=== PATIENT | male | born 1970 | race Caucasian/White ===

== ENCOUNTER 2016-05-21 01:30 | Emergency (ER) | payer OTHER ==
--- NOTE | 2016-05-21 02:01 | ED CLINICAL REPORT ---
Clinical Report - Physicians/Mid Levels [facility] [address] [place] [address] 05/21/2016 1:32 Patient: JASMYN VANESSA Time Seen: 01:38. Arrived- By private vehicle. Historian- patient. HISTORY OF PRESENT ILLNESS Chief Complaint: EYE REDNESS and IRRITATION. This started today, involves the right and left eye, is characterized as moderate in severity and has been constant and is still present. The patient did not sustain an injury. Eye discomfort. Moderate right and left eye redness. Moderate right and left eye irritation. A moderate amount of discharge from the right eye and left eye. Mild right and left eye matting. No eyelid swelling, photophobia, double vision, decreased vision or loss of vision. REVIEW OF SYSTEMS No fever or sore throat. He has had nasal congestion, a runny nose and a mild cough. All systems otherwise negative, except as recorded above. PAST HISTORY See nurses notes. No history of diabetes mellitus or glaucoma. Dental pain. Chronic back pain. Surgeries: Knee surgery. Tonsillectomy. Vasectomy. Medications: None. Allergies: Penicillins. SOCIAL HISTORY Smoker- current status unknown. History of drug use: marijuana. No alcohol use. ADDITIONAL NOTES The nursing notes have been reviewed. PHYSICAL EXAM Vital Signs: 05/21/2016 01:41 BP: 141/74. HR: 110. RR: 17. O2 saturation: 97%. Temp: 98 F. Pain level now: 0/10. Appearance: Alert. Oriented X3. Patient in mild distress. HEENT: Pharynx normal. Rt Eye: Injected conjunctiva. Exudate present. No injury to the conjunctiva or sclera or corneal foreign body or abrasion. Eyes: Visual acuity noted- see nurse's notes. Eyelids appear normal to inspection. Corneas appear normal to inspection. Pupils equal, round and reactive to light. Accommodation normal. EOMs intact. Periorbital areas appear normal to inspection. Lt Eye: Injected conjunctiva. Exudate present. No injury to the conjunctiva or sclera or corneal foreign body or abrasion. Neck: Neck supple. Normal inspection. CVS: Normal heart rate and rhythm. Respiratory: No respiratory distress. Breath sounds normal. Skin: No rash. Neuro: Oriented X 3. Mood/affect normal. No motor deficit. PROGRESS AND PROCEDURES Course of Care: Ibuprofen 600 mg PO given. Zofran 4 mg ODT PO given. Proparacaine 2 drops to each eye given. Patient is stable. Physical exam findings are improved. Symptoms much better. Patient/family counseled. Old ED records reviewed. Patient has had multiple ED visits. Disposition: Discharged. Condition: stable and improved. CLINICAL IMPRESSION Acute serous conjunctivitis of the right eye and left eye. Chronic substance abuse- tobacco (cigarettes), marijuana. No intoxication, anxiety or drug induced psychotic disorder or mood disorder. Acute viral rhinitis. INSTRUCTIONS Do not work for two days. Drink plenty of fluids. Do not smoke. Seek medical help to quit smoking. Warnings: Further evaluation is necessary. It is very important to follow up with a physician. GENERAL WARNINGS: Return or contact your physician immediately if your condition worsens or changes unexpectedly, if not improving as expected, or if other problems arise. Prescription Medications: Sulfacetamide ophthalmic solution 10% : Instill 2 drops into affected eye every 2 hours while awake for 1 week. Dispense fifteen (15) mL. No refills. OTC Medications: Motrin (available over the counter): take according to label instructions. Follow-up: Follow up with your doctor in about two days. Follow-up with: Leo Rojas MD, Ophthalmology, , [facility] [place] [address]; Zunilda Rosario MD, Ophthalmology, [facility] [address] - [address] [place] [address] Follow up in about two days if not better. (Electronically signed by Curt Early DO 05/21/2016 4:31)
--- NOTE | 2016-05-21 02:01 | ED NURSING NOTES ---
Clinical Report - Nurses [facility] [place] [address] [place] [address] 05/21/2016 1:32 Patient: JASMYN VANESSA TRIAGE Triage time 01:42. Acuity: LEVEL 4. Chief Complaint: REDNESS TO RIGHT EYE. REDNESS TO LEFT EYE. DRAINAGE TO RIGHT EYE. DRAINAGE TO LEFT EYE. 01:46. Alert. SEPSIS SCREEN: Sepsis Screen. Negative (no infection suspected/documented). VISUAL ACUITY: Visual acuity performed without corrective lenses: left eye; right eye 20/25; both eyes 20/20 minus one letter. --01:46 Jair Meier R.N. 01:41 05/21/16. BP: 141/74. HR: 110. RR: 17. O2 saturation: 97% on room air. Temp: 98 F. Pain level now: 0/10. --01:46 Jair Meier R.N. VISUAL ACUITY: Visual acuity performed: left eye 20/30 minus one letter. --02:13 Jair Meier R.N. Weight: 92.9 kg stated. Height/Length: 72 inches Per Patient. BMI: 27.8. --01:45 Jair Meier R.N. Medications None. --01:43 Jair Meier R.N. Medication/allergy information source: the patient. --01:46 Jair Meier R.N. Allergies Penicillins. --01:43 Jair Meier R.N. History Arrived by private vehicle. Historian: patient. Accompanied by friend. [facility] [place] This started today. Onset. (Cough and cold symptoms for 4-5 days). He did not sustain an injury. ( Cough). 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 PAST MEDICAL HX: Immunizations: up-to-date. SOCIAL HX: Current every day light tobacco smoker- less than 1/2 a pack per day. History of weekly drug use: marijuana. No alcohol use. No infectious disease exposure. ABUSE ASSESSMENT: No report of abuse. FALL RISK ASSESSMENT: Fall risk assessment completed. No fall risk identified. NUTRITIONAL RISK ASSESSMENT: The nutritional risk assessment revealed no deficiencies. FUNCTIONAL ASSESSMENT: Functional assessment: no impairments noted. LEARNING NEEDS ASSESSMENT: The learning needs assessment revealed no barriers. SKIN INTEGRITY ASSESSMENT: Skin integrity risk assessment completed. No skin integrity risk identified. --01:46 Jair Meier R.N. PROBLEMS: Back Injury. Sciatica. Arthritis. Viral Disease. --01:44 Jair Meier R.N. ADDITIONAL SURGERIES: Knee Surgery. Tonsillectomy. Vasectomy. --01:44 Jair Meier R.N. Interventions ID band on patient. To treatment room. --01:46 Jair Meier R.N. PHYSICAL ASSESSMENT 01:46. Ambulatory to room. GENERAL / NEURO / PSYCH: Alert. HEENT: No facial asymmetry noted. Conjunctival findings present: redness of the right conjunctiva and redness of the left conjunctiva. SKIN: Skin is warm and dry. Normal skin turgor. --01:46 Jair Meier R.N. NURSING PROGRESS NOTES Head of bed elevated. Two patient identifiers checked. Call light placed in reach. Bed placed in lowest position. Brakes of bed on. Patient ready for evaluation- chart flagged. --01:47 Jair Meier R.N. 02:00 05/21/2016 Ibuprofen PO 600 mg given. Allergies verified and confirmed 5 rights. --02:03 Jair Meier R.N. 02:01 05/21/2016 Zofran ODT (Ondansetron) PO 4 mg given. Allergies verified and confirmed 5 rights. --02:04 Jair Meier R.N. 02:03 05/21/2016 Proparacaine Eye Drops 2 drop given. Given in both eyes. Allergies verified and confirmed 5 rights. --02:04 Jair Meier R.N. 02:07. The patient is calm and resting quietly. GENERAL / NEURO / PSYCH: Alert. Oriented X 4. RESPIRATORY: No respiratory distress. SKIN: Skin color within normal limits. Skin is warm and dry. --02:11 Jair Meier R.N. DISPOSITION / DISCHARGE Departure time: 02:10. Condition at departure: stable. No learning barriers present. Discharge instructions provided and reviewed with the patient. Reviewed medication(s) side effects, precautions, dosing and course information. Prescription(s) given to the patient. Patient verbalized understanding. Written instructions provided in Rwandan. The patient was discharged home and accompanied by cutting and boning supervisor. He left the Emergency Department ambulatory and via private vehicle. Quality Auditor driving. FALL RISK ASSESSMENT: Fall risk assessment completed. No fall risk identified. --02:11 Jair Meier R.N. 02:05 05/21/16. HR: 98. RR: 15. O2 saturation: 98%. Pain level now: 0/10. --02:11 Jair Meier R.N. Locked/Released at 05/21/2016 2:13 by Jair Meier R.N.
--- NOTE | 2016-05-21 02:01 | ED ORDER SUMMARY ---
..... Patient: JASMYN VANESSA OrderSheet [facility] VisitID: [id number] [place] [address] 45y, M Registration Date/Time: 05/21/2016 ORDER SHEET Weight: 92.9 kg (stated) Allergies: Penicillins GENERAL ORDERS: MEDICATION ORDERS: Proparacaine Eye Drops (Solution 0.5 %) 2 drops (NOW, both eyes) (01:57 05/21/2016 Tan TURNER) (Ack 1:58 JQuivey R.N.) (2:04 JQuivey R.N.) Ibuprofen PO 600 mg (NOW) (01:57 05/21/2016 Tan TURNER) (Ack 1:58 JQuivey R.N.) (2:03 JQuivey R.N.) Zofran ODT PO 4 mg (NOW) (01:57 05/21/2016 Tan TURNER) (Ack 1:58 JQuivey R.N.) (2:04 JQuivey R.N.) IV FLUIDS: ORDER SHEET NOTES: [Electronically signed by Jair Meier R.N. (02:13 05/21/2016)] [Electronically signed by Curt Early DO (04:31 05/21/2016)] [Electronically locked/signed by Jair Meier R.N. (02:13 05/21/2016)]
--- NOTE | 2016-05-21 02:01 | ED ORDER SUMMARY ---
..... Patient: JASMYN VANESSA OrderSheet [facility] VisitID: [id number] [place] [address] 45y, M Registration Date/Time: 05/21/2016 ORDER SHEET Weight: 92.9 kg (stated) Allergies: Penicillins GENERAL ORDERS: MEDICATION ORDERS: Proparacaine Eye Drops (Solution 0.5 %) 2 drops (NOW, both eyes) (01:57 05/21/2016 Tan TURNER) (Ack 1:58 JQuivey R.N.) (2:04 JQuivey R.N.) Ibuprofen PO 600 mg (NOW) (01:57 05/21/2016 Tan TURNER) (Ack 1:58 JQuivey R.N.) (2:03 JQuivey R.N.) Zofran ODT PO 4 mg (NOW) (01:57 05/21/2016 Tan TURNER) (Ack 1:58 JQuivey R.N.) (2:04 JQuivey R.N.) IV FLUIDS: ORDER SHEET NOTES: [Electronically signed by Jair Meier R.N. (02:13 05/21/2016)] [Electronically signed by Curt Early DO (04:31 05/21/2016)] [Electronically locked/signed by Jair Meier R.N. (02:13 05/21/2016)]
--- NOTE | 2016-05-21 02:01 | ED CLINICAL REPORT ---
Clinical Report - Physicians/Mid Levels [facility] [address] [place] [address] 05/21/2016 1:32 Patient: JASMYN VANESSA Time Seen: 01:38. Arrived- By private vehicle. Historian- patient. HISTORY OF PRESENT ILLNESS Chief Complaint: EYE REDNESS and IRRITATION. This started today, involves the right and left eye, is characterized as moderate in severity and has been constant and is still present. The patient did not sustain an injury. Eye discomfort. Moderate right and left eye redness. Moderate right and left eye irritation. A moderate amount of discharge from the right eye and left eye. Mild right and left eye matting. No eyelid swelling, photophobia, double vision, decreased vision or loss of vision. REVIEW OF SYSTEMS No fever or sore throat. He has had nasal congestion, a runny nose and a mild cough. All systems otherwise negative, except as recorded above. PAST HISTORY See nurses notes. No history of diabetes mellitus or glaucoma. Dental pain. Chronic back pain. Surgeries: Knee surgery. Tonsillectomy. Vasectomy. Medications: None. Allergies: Penicillins. SOCIAL HISTORY Smoker- current status unknown. History of drug use: marijuana. No alcohol use. ADDITIONAL NOTES The nursing notes have been reviewed. PHYSICAL EXAM Vital Signs: 05/21/2016 01:41 BP: 141/74. HR: 110. RR: 17. O2 saturation: 97%. Temp: 98 F. Pain level now: 0/10. Appearance: Alert. Oriented X3. Patient in mild distress. HEENT: Pharynx normal. Rt Eye: Injected conjunctiva. Exudate present. No injury to the conjunctiva or sclera or corneal foreign body or abrasion. Eyes: Visual acuity noted- see nurse's notes. Eyelids appear normal to inspection. Corneas appear normal to inspection. Pupils equal, round and reactive to light. Accommodation normal. EOMs intact. Periorbital areas appear normal to inspection. Lt Eye: Injected conjunctiva. Exudate present. No injury to the conjunctiva or sclera or corneal foreign body or abrasion. Neck: Neck supple. Normal inspection. CVS: Normal heart rate and rhythm. Respiratory: No respiratory distress. Breath sounds normal. Skin: No rash. Neuro: Oriented X 3. Mood/affect normal. No motor deficit. PROGRESS AND PROCEDURES Course of Care: Ibuprofen 600 mg PO given. Zofran 4 mg ODT PO given. Proparacaine 2 drops to each eye given. Patient is stable. Physical exam findings are improved. Symptoms much better. Patient/family counseled. Old ED records reviewed. Patient has had multiple ED visits. Disposition: Discharged. Condition: stable and improved. CLINICAL IMPRESSION Acute serous conjunctivitis of the right eye and left eye. Chronic substance abuse- tobacco (cigarettes), marijuana. No intoxication, anxiety or drug induced psychotic disorder or mood disorder. Acute viral rhinitis. INSTRUCTIONS Do not work for two days. Drink plenty of fluids. Do not smoke. Seek medical help to quit smoking. Warnings: Further evaluation is necessary. It is very important to follow up with a physician. GENERAL WARNINGS: Return or contact your physician immediately if your condition worsens or changes unexpectedly, if not improving as expected, or if other problems arise. Prescription Medications: Sulfacetamide ophthalmic solution 10% : Instill 2 drops into affected eye every 2 hours while awake for 1 week. Dispense fifteen (15) mL. No refills. OTC Medications: Motrin (available over the counter): take according to label instructions. Follow-up: Follow up with your doctor in about two days. Follow-up with: Leo Rojas MD, Ophthalmology, , [facility] [place] [address]; Zunilda Rosario MD, Ophthalmology, [facility] [address] - [address] [place] [address] Follow up in about two days if not better. (Electronically signed by Curt Early DO 05/21/2016 4:31)
--- NOTE | 2016-05-21 02:01 | ED NURSING NOTES ---
Clinical Report - Nurses [facility] [place] [address] 05/21/2016 1:32 Patient: JASMYN VANESSA TRIAGE Triage time 01:42. Acuity: LEVEL 4. Chief Complaint: REDNESS TO RIGHT EYE. REDNESS TO LEFT EYE. DRAINAGE TO RIGHT EYE. DRAINAGE TO LEFT EYE. 01:46. Alert. SEPSIS SCREEN: Sepsis Screen. Negative (no infection suspected/documented). VISUAL ACUITY: Visual acuity performed without corrective lenses: left eye; right eye 20/25; both eyes 20/20 minus one letter. --01:46 Jair Meier R.N. 01:41 05/21/16. BP: 141/74. HR: 110. RR: 17. O2 saturation: 97% on room air. Temp: 98 F. Pain level now: 0/10. --01:46 Jair Meier R.N. VISUAL ACUITY: Visual acuity performed: left eye 20/30 minus one letter. --02:13 Jair Meier R.N. Weight: 92.9 kg stated. Height/Length: 72 inches Per Patient. BMI: 27.8. --01:45 Jair Meier R.N. Medications None. --01:43 Jair Meier R.N. Medication/allergy information source: the patient. --01:46 Jair Meier R.N. Allergies Penicillins. --01:43 Jair Meier R.N. History Arrived by private vehicle. Historian: patient. Accompanied by friend. [facility] [place] This started today. Onset. (Cough and cold symptoms for 4-5 days). He did not sustain an injury. ( Cough). 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 PAST MEDICAL HX: Immunizations: up-to-date. SOCIAL HX: Current every day light tobacco smoker- less than 1/2 a pack per day. History of weekly drug use: marijuana. No alcohol use. No infectious disease exposure. ABUSE ASSESSMENT: No report of abuse. FALL RISK ASSESSMENT: Fall risk assessment completed. No fall risk identified. NUTRITIONAL RISK ASSESSMENT: The nutritional risk assessment revealed no deficiencies. FUNCTIONAL ASSESSMENT: Functional assessment: no impairments noted. LEARNING NEEDS ASSESSMENT: The learning needs assessment revealed no barriers. SKIN INTEGRITY ASSESSMENT: Skin integrity risk assessment completed. No skin integrity risk identified. --01:46 Jair Meier R.N. PROBLEMS: Back Injury. Sciatica. Arthritis. Viral Disease. --01:44 Jair Meier R.N. ADDITIONAL SURGERIES: Knee Surgery. Tonsillectomy. Vasectomy. --01:44 Jair Meier R.N. Interventions ID band on patient. To treatment room. --01:46 Jair Meier R.N. PHYSICAL ASSESSMENT 01:46. Ambulatory to room. GENERAL / NEURO / PSYCH: Alert. HEENT: No facial asymmetry noted. Conjunctival findings present: redness of the right conjunctiva and redness of the left conjunctiva. SKIN: Skin is warm and dry. Normal skin turgor. --01:46 Jair Meier R.N. NURSING PROGRESS NOTES Head of bed elevated. Two patient identifiers checked. Call light placed in reach. Bed placed in lowest position. Brakes of bed on. Patient ready for evaluation- chart flagged. --01:47 Jair Meier R.N. 02:00 05/21/2016 Ibuprofen PO 600 mg given. Allergies verified and confirmed 5 rights. --02:03 Jair Meier R.N. 02:01 05/21/2016 Zofran ODT (Ondansetron) PO 4 mg given. Allergies verified and confirmed 5 rights. --02:04 Jair Meier R.N. 02:03 05/21/2016 Proparacaine Eye Drops 2 drop given. Given in both eyes. Allergies verified and confirmed 5 rights. --02:04 Jair Meier R.N. 02:07. The patient is calm and resting quietly. GENERAL / NEURO / PSYCH: Alert. Oriented X 4. RESPIRATORY: No respiratory distress. SKIN: Skin color within normal limits. Skin is warm and dry. --02:11 Jair Meier R.N. DISPOSITION / DISCHARGE Departure time: 02:10. Condition at departure: stable. No learning barriers present. Discharge instructions provided and reviewed with the patient. Reviewed medication(s) side effects, precautions, dosing and course information. Prescription(s) given to the patient. Patient verbalized understanding. Written instructions provided in Haitian. The patient was discharged home and accompanied by barber instructor. He left the Emergency Department ambulatory and via private vehicle. Legal Analyst driving. FALL RISK ASSESSMENT: Fall risk assessment completed. No fall risk identified. --02:11 Jair Meier R.N. 02:05 05/21/16. HR: 98. RR: 15. O2 saturation: 98%. Pain level now: 0/10. --02:11 Jair Meier R.N. Locked/Released at 05/21/2016 2:13 by Jair Meier R.N.
--- NOTE | 2016-05-21 04:32 | ED MAR SUMMARY ---
..... Medication Administration Record [facility] [address] [place] [address] Patient: JASMYN VANESSA Visit ID: [id number] 45y, M Weight: 92.9 kg Height/Length: 72 in BMI: 27.8 ALLERGIES: Penicillins Given 02:00 05/21/2016 Jair Meier R.N. Medication Administered: IBUPROFEN [PO], Dose: 600 mg PO. Medication Ordered: Ibuprofen PO 600 mg (NOW). Given 02:01 05/21/2016 Jair Meier RKameronNKameron Medication Administered: ZOFRAN ODT [PO] (ONDANSETRON), Dose: 4 mg PO. Medication Ordered: Zofran ODT PO 4 mg (NOW). Given 02:03 05/21/2016 Jair Meier RKameronNKameron Medication Administered: PROPARACAINE [EYE DROPS], Dose: 2 drop Eye Drops. Medication Ordered: Proparacaine Eye Drops (Solution 0.5 %) 2 drops (NOW, both eyes).
--- NOTE | 2016-05-21 04:32 | ED MED RECONCILIATION SUMMARY ---
Patient: JASMYN VANESSA Medication Reconciliation Report [facility] VisitID: [id number] [place] [address] 45y, M Registration Date/Time: 05/21/2016 Weight: 92.9 kg Height/Length: 72 in. BMI: 27.8 ALLERGIES: Penicillins The patient's Home Medications are listed below: NONE. The source(s) of the original Home Medication information: patient The following Medications were given to the patient in the Emergency Department: Ibuprofen [PO] PO 600 mg, administered: 05/21/2016 2:00:00 AM Zofran ODT [PO] PO 4 mg, administered: 05/21/2016 2:01:00 AM Proparacaine [Eye Drops] Eye Drops 2 drop, administered: 05/21/2016 2:03:00 AM The following Medications were prescribed to the patient: Motrin (available over the counter): take according to label instructions. -- Curt Early DO Sulfacetamide ophthalmic solution 10% : Instill 2 drops into affected eye every 2 hours while awake for 1 week. Dispense fifteen (15) mL. No refills. -- Curt Early DO
--- NOTE | 2016-05-21 04:32 | ED DISCHARGE INSTRUCTIONS ---
Patient: JASMYN VANESSA General Instructions Formerly [facility] VisitID: [id number] [place], [place] [id number] 45y, M Registration Date/Time: 05/21/2016 Acute serous conjunctivitis of the right eye and left eye. Chronic substance abuse- tobacco (cigarettes), marijuana. No intoxication, anxiety or drug induced psychotic disorder or mood disorder. Acute viral rhinitis. INSTRUCTIONS Do not work for two days. Drink plenty of fluids. Do not smoke. Seek medical help to quit smoking. Warnings: Further evaluation is necessary. It is very important to follow up with a physician. GENERAL WARNINGS: Return or contact your physician immediately if your condition worsens or changes unexpectedly, if not improving as expected, or if other problems arise. Prescription Medications: Sulfacetamide ophthalmic solution 10% : Instill 2 drops into affected eye every 2 hours while awake for 1 week. Dispense fifteen (15) mL. No refills. OTC Medications: Motrin (available over the counter): take according to label instructions. Follow-up: Follow up with your doctor in about two days. Follow-up with: Leo Rojas MD, Ophthalmology, , [facility], [address] [place] [address]; Zunilda Rosario MD, Ophthalmology, [facility] [address] - [address] [place] [address] Follow up in about two days if not better. ADDITIONAL INFORMATION Conjunctivitis, Non-Specific The membrane that covers your eye is inflamed. Any itching, burning or irritation should go away within the next 24 hours. Conjunctivitis may be related to a particle that was in your eye. If so, it was washed out with your tears or irrigation treatment. Being exposed to liquid chemicals or fumes may also cause this reaction. Your condition does not appear to be due to an eye infection. Home Care: Apply a cold pack (ice in a plastic bag, wrapped in a towel) over the eye for 20 minutes at a time. This will reduce pain. Eye drops may be prescribed to reduce irritation or redness. Otherwise, Visine or similar kmex-uyp-mttvbda decongestant eye drops may be used. You may use acetaminophen (Tylenol) or ibuprofen (Motrin, Advil) to control pain, unless another medicine was prescribed. [ NOTE: If you have chronic liver or kidney disease or ever had a stomach ulcer or GI bleeding, talk with your doctor before using these medicines.] Follow Up with your doctor or this facility as directed, or if your symptoms have not improved after 24 hours. Get Prompt Medical Attention if any of the following occur: Increased eyelid swelling Increase in eye pain Increased redness or drainage from the eye Failure of normal vision to return within 24-48 hours. Marijuana Abuse Marijuana is the most widely used illegal drug in the [place]. It is called by various names such as pot, weed, blunts, grass, reefer, ganja, hash, hashish. It is usually smoked but can be mixed with foods or brewed as a tea. It is sometimes sold with PCP (Barrett Dust) or amphetamine mixed in it. These drugs can cause other harmful side effects. Marijuana can cause the following effects: Changes in mood (stimulated, happy, drowsy, depressed, paranoid) Hallucinations Increased heart rate and blood pressure Increased appetite Time distortion, difficulty concentrating, impaired memory Lung damage (similar to cigarettes with chronic cough, wheezing, frequent colds and bronchitis) You can become psychologically dependent on marijuana. That means the craving to use the drug is emotional or psychological rather than due to physical withdrawal. Is Marijuana Running Your Life? Here are some of the signs: Relying on marijuana to feel good, forget problems, deal with stress or to relax Wanting to be alone most of the time or only with others who use drugs Losing interest in things that used to be important Changes in school or job performance or attendance Spending a lot of time thinking about how to get marijuana Stealing or selling your things so you can buy marijuana Unable to stop using even though you may want to quit Increasing anxiety, anger,or depression Sleeping too much, changes in eating habits (weight loss or gain) Needing to use more to get the same effect Home Care Once you have become addicted to any drug, quitting is hard to do. Most people find they can't quit without help. So, dont try to do this alone. Talk to someone you trust who can support you. Seek professional help. Avoid people and places where drugs are used. That only increases the temptation to use. Follow Up with your doctor or as advised by our staff. For more information or a referral to a treatment center in your area, contact: Your local mental health center or the National Alcohol and Substance Abuse Information Center (924)-996-0869 www.addictioncareLetsCram.com National [place] on Alcoholism and Drug Dependence 440-893-AEOH www.ncadd.org Marijuana Anonymous 996-196-4286 www.marijuana-anonymous.org Get Prompt Medical Attention if any of the following occur: You feel extreme depression, fear, anxiety, or anger toward yourself or others You feel out of control You feel that you may try to harm yourself or another Viral Respiratory Illness [Adult] You have an Upper Respiratory Illness (URI) caused by a virus. This illness is contagious during the first few days. It is spread through the air by coughing and sneezing or by direct contact (touching the sick person and then touching your own eyes, nose or mouth). Most viral illnesses go away within 7-10 days with rest and simple home remedies. Sometimes, the illness may last for several weeks. Antibiotics will not kill a virus and are generally not prescribed for this condition. Home Care: 1) If symptoms are severe, rest at home for the first 2-3 days. When you resume activity, don't let yourself get too tired. 2) Avoid being exposed to cigarette smoke (yours or others). 3) Tylenol (acetaminophen) or ibuprofen (Advil, Motrin) will help fever, muscle aching and headache. (Persons under 18 with fever should not take aspirin since this may cause liver damage.) 4) Your appetite may be poor, so a light diet is fine. Avoid dehydration by drinking 6-8 glasses of fluids per day (water, soft drinks, juices, tea, soup). Extra fluids will help loosen secretions in the nose and lungs. 5) Jsyk-bbb-yyuuwbw cold medicines will not shorten the length of time youre sick, but they may be helpful for the following symptoms: cough (Robitussin DM); sore throat (Chloraseptic lozenges or spray); nasal and sinus congestion (Actifed, Sudafed, Chlortrimeton). Follow Up with your doctor or as advised if you dont improve over the next week. Get Prompt Medical Attention if any of the following occur: -- Cough with lots of colored sputum (mucus) or blood in your sputum -- Chest pain, shortness of breath, wheezing or have trouble breathing -- Severe headache; face, neck or ear pain -- Fever over 100.4 F (38.0 C) for more than three days -- You cant swallow due to throat pain How To Quit Smoking Smoking is one of the hardest habits to break. About half of all those who have ever smoked have been able to quit, and most of those (about 70%) who still smoke want to quit. Here are some of the best ways to stop smoking. Keep Trying: It takes most smokers about 8 tries before they are finally able to fully quit. So, the more often you try and fail, the better your chance of quitting the next time! So, don't give up! Go Cold [place]: Most ex-smokers quit cold turkey. Trying to cut back gradually doesn't seem to work as well, perhaps because it continues the smoking habit. Also, it is possible to fool yourself by inhaling more while smoking fewer cigarettes. This results in the same amount of nicotine in your body! Get Support: Support programs can make an important difference, especially for the heavy smoker. These groups offer lectures, methods to change your behavior and peer support. Call the free national Quitline for more information. 330-AQYQ-ICU (082-496-4647). Low-cost or free programs are offered by many hospitals, local chapters of the [place] [employer] (324-142-1372) and the [place] [employer] (684-500-8304). Support at home is important too. Non-smokers can help by offering praise and encouragement. If the smoker fails to quit, encourage them to try again! Gmje-Guz-Tkldkon Medicines: For those who can't quit on their own, Nicotine Replacement Therapy (NRT) may make quitting much easier. Certain aids such as the nicotine patch, gum and lozenge are available without a prescription. However, it is best to use these under the guidance of your doctor. The skin patch provides a steady supply of nicotine to the body. Nicotine gum and lozenge gives temporary bursts of low levels of nicotine. Both methods take the edge off the craving for cigarettes. WARNING: If you feel symptoms of nicotine overdose, such as nausea, vomiting, dizziness, weakness, or fast heartbeat, stop using these and see your doctor. Prescription Medicines: After evaluating your smoking patterns and prior attempts at quitting, your doctor may offer a prescription medicine such as bupropion (Zyban, Wellbutrin), varenicline (Chantix, Champix), a niocotine inhaler or nasal spray. Each has its unique advantage and side effects which your doctor can review with you. Health Benefits Of Quitting: The benefits of quitting start right away and keep improving the longer you go without smokin minutes: blood pressure and pulse return to normal 8 hours: oxygen levels return to normal 2 days: ability to smell and taste begins to improve as damaged nerves start to regrow 2-3 weeks: circulation and lung function improves 1-9 months: decreased cough, congestion and shortness of breath; less tired 1 year: risk of heart attack decreases by half 5 years: risk of lung cancer decreases by half; risk of stroke becomes the same as a non-smoker For information about how to quit smoking, visit the following links: National Cancer [place] , Clearing the Air, Quit Smoking Today - an online booklet. http://www.smokefree.gov/pubs/clearing_the_air.pdf Smokefree.gov http://smokefree.gov/ QuitNet http://www.quitnet.com/ Sulfacetamide Sodium Eye drops, solution What is this medicine? SULFACETAMIDE (sul fa SEE ta mide) is a sulfonamide antibiotic. It is used to treat eye infections. How should I use this medicine? This medicine is only for use in the eye. Do not take by mouth. Follow the directions on the prescription label. Wash hands before and after use. Tilt your head back slightly and pull your lower eyelid down with your index finger to form a pouch. Try not to touch the tip of the dropper to your eye, fingertips, or any other surface. Squeeze the prescribed number of drops into the pouch. Close the eye gently to spread the drops. Your vision may blur for a few minutes. Use your doses at regular intervals. Do not use your medicine more often than directed. Finish the full course prescribed by your doctor or health neonatal critical care nurse even if you think your condition is better. Talk to your senior php developer regarding the use of this medicine in children. Special care may be needed. What side effects may I notice from receiving this medicine? Side effects that you should report to your doctor or health neonatal critical care nurse as soon as possible: blurred vision that does not go away burning, blistering, peeling, stinging, or itching of the eyes or eyelids, skin or mouth eye redness, swelling, or pain Side effects that usually do not require medical attention (report to your doctor or health neonatal critical care nurse if they continue or are bothersome): blurred vision for a few moments after application What may interact with this medicine? eye products that contain silver What if I miss a dose? If you miss a dose, use it as soon as you can. If it is almost time for your next dose, use only that dose. Do not use double or extra doses. Where should I keep my medicine? Keep out of the reach of children. Store between 2 and 30 degrees C (36 and 86 degrees F). Do not freeze. Throw away any unused eye products after the expiration date. What should I tell my health care provider before I take this medicine? They need to know if you have any of these conditions: eye injury or eye surgery an unusual or allergic reaction to sulfacetamide, sulfa drugs, other medicines, foods, dyes, or preservatives or trying to get breast-feeding What should I watch for while using this medicine? Tell your doctor or health neonatal critical care nurse if your symptoms do not get better in 2 to 3 days. A full course of treatment is usually 7 to 10 days. If you get any sign of an allergic reaction, stop using your eye product and call your doctor or health neonatal critical care nurse. Wear sunglasses if this medicine makes your eyes more sensitive to light. Keep out of the sun, or wear protective clothing outdoors and use a sunscreen. Do not use sun lamps or sun tanning beds or booths. Ibuprofen Oral tablet What is this medicine? IBUPROFEN (eye BYOO proe fen) is a non-steroidal anti-inflammatory drug (NSAID). It is used for dental pain, fever, headaches or migraines, osteoarthritis, rheumatoid arthritis, or painful monthly periods. It can also relieve minor aches and pains caused by a cold, flu, or sore throat. How should I use this medicine? Take this medicine by mouth with a glass of water. Follow the directions on the prescription label. Take this medicine with food if your stomach gets upset. Try to not lie down for at least 10 minutes after you take the medicine. Take your medicine at regular intervals. Do not take your medicine more often than directed. A special MedGuide will be given to you by the pharmacist with each prescription and refill. Be sure to read this information carefully each time. Talk to your senior php developer regarding the use of this medicine in children. Special care may be needed. What side effects may I notice from receiving this medicine? Side effects that you should report to your doctor or health neonatal critical care nurse as soon as possible: allergic reactions like skin rash, itching or hives, swelling of the face, lips, or tongue black or bloody stools, blood in the urine or in vomit breathing problems changes in vision chest pain general ill feeling or flu-like symptoms nausea or vomiting redness, blistering, peeling or loosening of the skin, including inside the mouth slurred speech or weakness on one side of the body stomach pain unexplained weight gain or swelling unusually weak or tired yellowing of eyes or skin Side effects that usually do not require medical attention (report to your doctor or health neonatal critical care nurse if they continue or are bothersome): constipation or diarrhea dizziness gas or heartburn stomach upset What may interact with this medicine? Do not take this medicine with any of the following medications: cidofovir ketorolac methotrexate pemetrexed This medicine may also interact with the following medications: alcohol aspirin diuretics lithium other drugs for inflammation like prednisone warfarin What if I miss a dose? If you miss a dose, take it as soon as you can. If it is almost time for your next dose, take only that dose. Do not take double or extra doses. Where should I keep my medicine? Keep out of the reach of children. Store at room temperature between 15 and 30 degrees C (59 and 86 degrees F). Keep container tightly closed. Throw away any unused medicine after the expiration date. What should I tell my health care provider before I take this medicine? They need to know if you have any of these conditions: asthma cigarette smoker drink more than 3 alcohol containing drinks a day heart disease or circulation problems such as heart failure or leg edema (fluid retention) high blood pressure kidney disease liver disease stomach bleeding or ulcers an unusual or allergic reaction to ibuprofen, aspirin, other NSAIDS, other medicines, foods, dyes, or preservatives or trying to get breast-feeding What should I watch for while using this medicine? Tell your doctor or healthcare professional if your symptoms do not start to get better or if they get worse. This medicine does not prevent heart attack or stroke. In fact, this medicine may increase the chance of a heart attack or stroke. The chance may increase with longer use of this medicine and in people who have heart disease. If you take aspirin to prevent heart attack or stroke, talk with your doctor or health neonatal critical care nurse. Do not take other medicines that contain aspirin, ibuprofen, or naproxen with this medicine. Side effects such as stomach upset, nausea, or ulcers may be more likely to occur. Many medicines available without a prescription should not be taken with this medicine. This medicine can cause ulcers and bleeding in the stomach and intestines at any time during treatment. Ulcers and bleeding can happen without warning symptoms and can cause . To reduce your risk, do not smoke cigarettes or drink alcohol while you are taking this medicine. You may get drowsy or dizzy. Do not drive, use machinery, or do anything that needs mental alertness until you know how this medicine affects you. Do not stand or sit up quickly, especially if you are an older patient. This reduces the risk of dizzy or fainting spells. This medicine can cause you to bleed more easily. Try to avoid damage to your teeth and gums when you brush or floss your teeth. You have been given the following additional information: Conjunctivitis, Non-Specific Marijuana Abuse [place], Viral, No Abx (Adult) Smoking Cessation Sulfacetamide Sodium Eye drops, solution Ibuprofen Oral tablet Do not work for two days. (Electronically signed by Curt Early DO 05/21/2016 4:31)
--- NOTE | 2016-05-21 04:32 | ED DISCHARGE INSTRUCTIONS ---
Patient: JASMYN VANESSA General Instructions [facility] VisitID: [id number] [place], [place] [id number] 45y, M Registration Date/Time: 05/21/2016 Acute serous conjunctivitis of the right eye and left eye. Chronic substance abuse- tobacco (cigarettes), marijuana. No intoxication, anxiety or drug induced psychotic disorder or mood disorder. Acute viral rhinitis. INSTRUCTIONS Do not work for two days. Drink plenty of fluids. Do not smoke. Seek medical help to quit smoking. Warnings: Further evaluation is necessary. It is very important to follow up with a physician. GENERAL WARNINGS: Return or contact your physician immediately if your condition worsens or changes unexpectedly, if not improving as expected, or if other problems arise. Prescription Medications: Sulfacetamide ophthalmic solution 10% : Instill 2 drops into affected eye every 2 hours while awake for 1 week. Dispense fifteen (15) mL. No refills. OTC Medications: Motrin (available over the counter): take according to label instructions. Follow-up: Follow up with your doctor in about two days. Follow-up with: Leo Rojas MD, Ophthalmology, , [facility], [address] [place] [address]; Zunilda Rosario MD, Ophthalmology, [facility] [address] - [address] [place] [address] Follow up in about two days if not better. ADDITIONAL INFORMATION Conjunctivitis, Non-Specific The membrane that covers your eye is inflamed. Any itching, burning or irritation should go away within the next 24 hours. Conjunctivitis may be related to a particle that was in your eye. If so, it was washed out with your tears or irrigation treatment. Being exposed to liquid chemicals or fumes may also cause this reaction. Your condition does not appear to be due to an eye infection. Home Care: Apply a cold pack (ice in a plastic bag, wrapped in a towel) over the eye for 20 minutes at a time. This will reduce pain. Eye drops may be prescribed to reduce irritation or redness. Otherwise, Visine or similar [id number]-rzrftiq decongestant eye drops may be used. You may use acetaminophen (Tylenol) or ibuprofen (Motrin, Advil) to control pain, unless another medicine was prescribed. [ NOTE: If you have chronic liver or kidney disease or ever had a stomach ulcer or GI bleeding, talk with your doctor before using these medicines.] Follow Up with your doctor or this facility as directed, or if your symptoms have not improved after 24 hours. Get Prompt Medical Attention if any of the following occur: Increased eyelid swelling Increase in eye pain Increased redness or drainage from the eye Failure of normal vision to return within 24-48 hours. Marijuana Abuse Marijuana is the most widely used illegal drug in the [place]. It is called by various names such as pot, weed, blunts, grass, reefer, ganja, hash, hashish. It is usually smoked but can be mixed with foods or brewed as a tea. It is sometimes sold with PCP (Barrett Dust) or amphetamine mixed in it. These drugs can cause other harmful side effects. Marijuana can cause the following effects: Changes in mood (stimulated, happy, drowsy, depressed, paranoid) Hallucinations Increased heart rate and blood pressure Increased appetite Time distortion, difficulty concentrating, impaired memory Lung damage (similar to cigarettes with chronic cough, wheezing, frequent colds and bronchitis) You can become psychologically dependent on marijuana. That means the craving to use the drug is emotional or psychological rather than due to physical withdrawal. Is Marijuana Running Your Life? Here are some of the signs: Relying on marijuana to feel good, forget problems, deal with stress or to relax Wanting to be alone most of the time or only with others who use drugs Losing interest in things that used to be important Changes in school or job performance or attendance Spending a lot of time thinking about how to get marijuana Stealing or selling your things so you can buy marijuana Unable to stop using even though you may want to quit Increasing anxiety, anger,or depression Sleeping too much, changes in eating habits (weight loss or gain) Needing to use more to get the same effect Home Care Once you have become addicted to any drug, quitting is hard to do. Most people find they can't quit without help. So, dont try to do this alone. Talk to someone you trust who can support you. Seek professional help. Avoid people and places where drugs are used. That only increases the temptation to use. Follow Up with your doctor or as advised by our staff. For more information or a referral to a treatment center in your area, contact: Your local mental health center or the National Alcohol and Substance Abuse Information Center (173)-079-5647 www.addictioncareQuantine.com National [employer] on Alcoholism and Drug Dependence 544-136-SDCK www.ncadd.org Marijuana Anonymous 859-697-6502 www.marijuana-anonymous.org Get Prompt Medical Attention if any of the following occur: You feel extreme depression, fear, anxiety, or anger toward yourself or others You feel out of control You feel that you may try to harm yourself or another Viral Respiratory Illness [Adult] You have an Upper Respiratory Illness (URI) caused by a virus. This illness is contagious during the first few days. It is spread through the air by coughing and sneezing or by direct contact (touching the sick person and then touching your own eyes, nose or mouth). Most viral illnesses go away within 7-10 days with rest and simple home remedies. Sometimes, the illness may last for several weeks. Antibiotics will not kill a virus and are generally not prescribed for this condition. Home Care: 1) If symptoms are severe, rest at home for the first 2-3 days. When you resume activity, don't let yourself get too tired. 2) Avoid being exposed to cigarette smoke (yours or others). 3) Tylenol (acetaminophen) or ibuprofen (Advil, Motrin) will help fever, muscle aching and headache. (Persons under 18 with fever should not take aspirin since this may cause liver damage.) 4) Your appetite may be poor, so a light diet is fine. Avoid dehydration by drinking 6-8 glasses of fluids per day (water, soft drinks, juices, tea, soup). Extra fluids will help loosen secretions in the nose and lungs. 5) Hypv-gks-xclzitl cold medicines will not shorten the length of time youre sick, but they may be helpful for the following symptoms: cough (Robitussin DM); sore throat (Chloraseptic lozenges or spray); nasal and sinus congestion (Actifed, Sudafed, Chlortrimeton). Follow Up with your doctor or as advised if you dont improve over the next week. Get Prompt Medical Attention if any of the following occur: -- Cough with lots of colored sputum (mucus) or blood in your sputum -- Chest pain, shortness of breath, wheezing or have trouble breathing -- Severe headache; face, neck or ear pain -- Fever over 100.4 F (38.0 C) for more than three days -- You cant swallow due to throat pain How To Quit Smoking Smoking is one of the hardest habits to break. About half of all those who have ever smoked have been able to quit, and most of those (about 70%) who still smoke want to quit. Here are some of the best ways to stop smoking. Keep Trying: It takes most smokers about 8 tries before they are finally able to fully quit. So, the more often you try and fail, the better your chance of quitting the next time! So, don't give up! Go Cold Clio: Most ex-smokers quit cold turkey. Trying to cut back gradually doesn't seem to work as well, perhaps because it continues the smoking habit. Also, it is possible to fool yourself by inhaling more while smoking fewer cigarettes. This results in the same amount of nicotine in your body! Get Support: Support programs can make an important difference, especially for the heavy smoker. These groups offer lectures, methods to change your behavior and peer support. Call the free national Quitline for more information. 146-IFLO-UQE (724-660-6259). Low-cost or free programs are offered by many hospitals, local chapters of the [employer] (523-973-4353) and the [employer] (434-238-2397). Support at home is important too. Non-smokers can help by offering praise and encouragement. If the smoker fails to quit, encourage them to try again! Rzjo-Bgt-Iugmxmn Medicines: For those who can't quit on their own, Nicotine Replacement Therapy (NRT) may make quitting much easier. Certain aids such as the nicotine patch, gum and lozenge are available without a prescription. However, it is best to use these under the guidance of your doctor. The skin patch provides a steady supply of nicotine to the body. Nicotine gum and lozenge gives temporary bursts of low levels of nicotine. Both methods take the edge off the craving for cigarettes. WARNING: If you feel symptoms of nicotine overdose, such as nausea, vomiting, dizziness, weakness, or fast heartbeat, stop using these and see your doctor. Prescription Medicines: After evaluating your smoking patterns and prior attempts at quitting, your doctor may offer a prescription medicine such as bupropion (Zyban, Wellbutrin), varenicline (Chantix, Champix), a niocotine inhaler or nasal spray. Each has its unique advantage and side effects which your doctor can review with you. Health Benefits Of Quitting: The benefits of quitting start right away and keep improving the longer you go without smokin minutes: blood pressure and pulse return to normal 8 hours: oxygen levels return to normal 2 days: ability to smell and taste begins to improve as damaged nerves start to regrow 2-3 weeks: circulation and lung function improves 1-9 months: decreased cough, congestion and shortness of breath; less tired 1 year: risk of heart attack decreases by half 5 years: risk of lung cancer decreases by half; risk of stroke becomes the same as a non-smoker For information about how to quit smoking, visit the following links: National Cancer [place] , Clearing the Air, Quit Smoking Today - an online booklet. http://www.smokefree.gov/pubs/clearing_the_air.pdf Smokefree.gov http://smokefree.gov/ QuitNet http://www.quitnet.com/ Sulfacetamide Sodium Eye drops, solution What is this medicine? SULFACETAMIDE (sul fa SEE ta mide) is a sulfonamide antibiotic. It is used to treat eye infections. How should I use this medicine? This medicine is only for use in the eye. Do not take by mouth. Follow the directions on the prescription label. Wash hands before and after use. Tilt your head back slightly and pull your lower eyelid down with your index finger to form a pouch. Try not to touch the tip of the dropper to your eye, fingertips, or any other surface. Squeeze the prescribed number of drops into the pouch. Close the eye gently to spread the drops. Your vision may blur for a few minutes. Use your doses at regular intervals. Do not use your medicine more often than directed. Finish the full course prescribed by your doctor or health critical care transport nurse even if you think your condition is better. Talk to your marketing project coordinator regarding the use of this medicine in children. Special care may be needed. What side effects may I notice from receiving this medicine? Side effects that you should report to your doctor or health critical care transport nurse as soon as possible: blurred vision that does not go away burning, blistering, peeling, stinging, or itching of the eyes or eyelids, skin or mouth eye redness, swelling, or pain Side effects that usually do not require medical attention (report to your doctor or health critical care transport nurse if they continue or are bothersome): blurred vision for a few moments after application What may interact with this medicine? eye products that contain silver What if I miss a dose? If you miss a dose, use it as soon as you can. If it is almost time for your next dose, use only that dose. Do not use double or extra doses. Where should I keep my medicine? Keep out of the reach of children. Store between 2 and 30 degrees C (36 and 86 degrees F). Do not freeze. Throw away any unused eye products after the expiration date. What should I tell my health care provider before I take this medicine? They need to know if you have any of these conditions: eye injury or eye surgery an unusual or allergic reaction to sulfacetamide, sulfa drugs, other medicines, foods, dyes, or preservatives or trying to get breast-feeding What should I watch for while using this medicine? Tell your doctor or health critical care transport nurse if your symptoms do not get better in 2 to 3 days. A full course of treatment is usually 7 to 10 days. If you get any sign of an allergic reaction, stop using your eye product and call your doctor or health critical care transport nurse. Wear sunglasses if this medicine makes your eyes more sensitive to light. Keep out of the sun, or wear protective clothing outdoors and use a sunscreen. Do not use sun lamps or sun tanning beds or booths. Ibuprofen Oral tablet What is this medicine? IBUPROFEN (eye BYOO proe fen) is a non-steroidal anti-inflammatory drug (NSAID). It is used for dental pain, fever, headaches or migraines, osteoarthritis, rheumatoid arthritis, or painful monthly periods. It can also relieve minor aches and pains caused by a cold, flu, or sore throat. How should I use this medicine? Take this medicine by mouth with a glass of water. Follow the directions on the prescription label. Take this medicine with food if your stomach gets upset. Try to not lie down for at least 10 minutes after you take the medicine. Take your medicine at regular intervals. Do not take your medicine more often than directed. A special MedGuide will be given to you by the pharmacist with each prescription and refill. Be sure to read this information carefully each time. Talk to your marketing project coordinator regarding the use of this medicine in children. Special care may be needed. What side effects may I notice from receiving this medicine? Side effects that you should report to your doctor or health critical care transport nurse as soon as possible: allergic reactions like skin rash, itching or hives, swelling of the face, lips, or tongue black or bloody stools, blood in the urine or in vomit breathing problems changes in vision chest pain general ill feeling or flu-like symptoms nausea or vomiting redness, blistering, peeling or loosening of the skin, including inside the mouth slurred speech or weakness on one side of the body stomach pain unexplained weight gain or swelling unusually weak or tired yellowing of eyes or skin Side effects that usually do not require medical attention (report to your doctor or health critical care transport nurse if they continue or are bothersome): constipation or diarrhea dizziness gas or heartburn stomach upset What may interact with this medicine? Do not take this medicine with any of the following medications: cidofovir ketorolac methotrexate pemetrexed This medicine may also interact with the following medications: alcohol aspirin diuretics lithium other drugs for inflammation like prednisone warfarin What if I miss a dose? If you miss a dose, take it as soon as you can. If it is almost time for your next dose, take only that dose. Do not take double or extra doses. Where should I keep my medicine? Keep out of the reach of children. Store at room temperature between 15 and 30 degrees C (59 and 86 degrees F). Keep container tightly closed. Throw away any unused medicine after the expiration date. What should I tell my health care provider before I take this medicine? They need to know if you have any of these conditions: asthma cigarette smoker drink more than 3 alcohol containing drinks a day heart disease or circulation problems such as heart failure or leg edema (fluid retention) high blood pressure kidney disease liver disease stomach bleeding or ulcers an unusual or allergic reaction to ibuprofen, aspirin, other NSAIDS, other medicines, foods, dyes, or preservatives or trying to get breast-feeding What should I watch for while using this medicine? Tell your doctor or healthcare professional if your symptoms do not start to get better or if they get worse. This medicine does not prevent heart attack or stroke. In fact, this medicine may increase the chance of a heart attack or stroke. The chance may increase with longer use of this medicine and in people who have heart disease. If you take aspirin to prevent heart attack or stroke, talk with your doctor or health critical care transport nurse. Do not take other medicines that contain aspirin, ibuprofen, or naproxen with this medicine. Side effects such as stomach upset, nausea, or ulcers may be more likely to occur. Many medicines available without a prescription should not be taken with this medicine. This medicine can cause ulcers and bleeding in the stomach and intestines at any time during treatment. Ulcers and bleeding can happen without warning symptoms and can cause . To reduce your risk, do not smoke cigarettes or drink alcohol while you are taking this medicine. You may get drowsy or dizzy. Do not drive, use machinery, or do anything that needs mental alertness until you know how this medicine affects you. Do not stand or sit up quickly, especially if you are an older patient. This reduces the risk of dizzy or fainting spells. This medicine can cause you to bleed more easily. Try to avoid damage to your teeth and gums when you brush or floss your teeth. You have been given the following additional information: Conjunctivitis, Non-Specific Marijuana Abuse Uri, Viral, No Abx (Adult) Smoking Cessation Sulfacetamide Sodium Eye drops, solution Ibuprofen Oral tablet Do not work for two days. (Electronically signed by Curt Early DO 05/21/2016 4:31)
--- NOTE | 2016-05-21 04:32 | ED MED RECONCILIATION SUMMARY ---
Patient: JASMYN VANESSA Medication Reconciliation Report [facility] VisitID: [id number] [place] [address] 45y, M Registration Date/Time: 05/21/2016 Weight: 92.9 kg Height/Length: 72 in. BMI: 27.8 ALLERGIES: Penicillins The patient's Home Medications are listed below: NONE. The source(s) of the original Home Medication information: patient The following Medications were given to the patient in the Emergency Department: Ibuprofen [PO] PO 600 mg, administered: 05/21/2016 2:00:00 AM Zofran ODT [PO] PO 4 mg, administered: 05/21/2016 2:01:00 AM Proparacaine [Eye Drops] Eye Drops 2 drop, administered: 05/21/2016 2:03:00 AM The following Medications were prescribed to the patient: Motrin (available over the counter): take according to label instructions. -- Curt Early DO Sulfacetamide ophthalmic solution 10% : Instill 2 drops into affected eye every 2 hours while awake for 1 week. Dispense fifteen (15) mL. No refills. -- Curt Early DO
--- NOTE | 2016-05-21 04:32 | ED MAR SUMMARY ---
..... Medication Administration Record [facility] [address] [place] [address] Patient: JASMYN VANESSA Visit ID: [id number] 45y, M Weight: 92.9 kg Height/Length: 72 in BMI: 27.8 ALLERGIES: Penicillins Given 02:00 05/21/2016 Jair Meier R.N. Medication Administered: IBUPROFEN [PO], Dose: 600 mg PO. Medication Ordered: Ibuprofen PO 600 mg (NOW). Given 02:01 05/21/2016 Jair Meier RKameronNKameron Medication Administered: ZOFRAN ODT [PO] (ONDANSETRON), Dose: 4 mg PO. Medication Ordered: Zofran ODT PO 4 mg (NOW). Given 02:03 05/21/2016 Jair Meier RKameronNKameron Medication Administered: PROPARACAINE [EYE DROPS], Dose: 2 drop Eye Drops. Medication Ordered: Proparacaine Eye Drops (Solution 0.5 %) 2 drops (NOW, both eyes).
== END 2016-05-21 02:10 | disposition home or self-care (01) ==
LOC: ED SRH 01:30
DX: H10.023 Other mucopurulent conjunctivitis, bilateral (principal); J31.0 Chronic rhinitis; B97.89 Other viral agents as the cause of diseases classified elsewhere; F17.210 Nicotine dependence, cigarettes, uncomplicated; Z88.0 Allergy status to penicillin